=== PATIENT | male | born 1975 | race Caucasian/White ===

== ENCOUNTER 2018-12-03 10:14 | Emergency (ER) | payer MEDICARE, OTHER ==
[~2018-12-03] VITALS: Ht 177.8 cm; Wt 88.5 kg
[2018-12-03 10:16] VITALS: BP 115/71
--- NOTE | 2018-12-03 10:54 | NUR ---
PATIENT AMB WITH STEADY GAIT TO BED 12
--- NOTE | 2018-12-03 10:57 | NUR ---
Marvin zayas in EDM - 12/03/18 at 1235 by KEEGAN BROUGHT IN BY [facility] C/O INTERMITTENT LLQ WITH NAUSEA AND LOOSE STOOLS DENIES BRIGHT RED BLOOD IN STOOL
--- NOTE | 2018-12-03 10:59 | NUR ---
Note chana in EDM - 12/03/18 at 1235 by KEEGAN BROUGHT IN BY [facility] C/O INTERMITTENT LLQ WITH NAUSEA AND LOOSE STOOLS DENIES BRIGHT RED BLOOD IN STOOL HX: UC, DIVERTICULOSIS. STATES HE TOOK HIS PRESCRIBED 2MG DILAUDID THIS MORNING WITH NO RELIEF.
--- NOTE | 2018-12-03 13:15 | NUR ---
PATIENT STATES PAIN AT THIS TIME. DR ELLIS MADE AWARE
[2018-12-03] MEDS ORDERED: NACL 0.9% 1,000 ML IV SCH (14:13)
[2018-12-03] MEDS ORDERED: NACL 0.9% 1,000 ML IV ONE (14:13)
[2018-12-03] MEDS ORDERED: PROMETHAZINE 25 MG/ML VIAL IM ONE (14:15)
[2018-12-03] MEDS ORDERED: ALUMINUM HYD/MAG/SIMETHICONE 30 ML, DICYCLOMINE HCL LIQUID 20 MG, LIDOCAINE VISCOUS 2% ... PO ONE ×3 (14:15)
[2018-12-03] MEDS ORDERED: DIPHENOXYLATE /ATROPINE 2.5 MG TAB PO ONE (14:15)
[2018-12-03] MEDS ORDERED: KETOROLAC 30 MG/ML VIAL IM ONE (14:15)
[2018-12-03 15:49] LABS: BASOPHILS # (AUTO) 0.1 K/uL (0.00-0.22); BASOPHILS % (AUTO) 0.9 % (0.0-2.0); EOSINOPHILS # (AUTO) 0.2 K/uL (0-0.4); EOSINOPHILS % (AUTO) 2.5 % (0.0-4.0); HEMATOCRIT 44.1 % (36-52); HEMOGLOBIN 14.6 g/dL (12.0-18.0); LYMPHOCYTES # (AUTO) 2.2 K/uL (2.0-11.5); LYMPHOCYTES % (AUTO) 34.3 % (20.5-51.1); MEAN CORPUSCULAR HEMOGLOBIN 30 pg (27-31); MEAN CORPUSCULAR HGB CONC 33 g/dL (33-37); MEAN CORPUSCULAR VOLUME 90.2 fL (80-94); MONOCYTES # (AUTO) 0.6 K/uL (0.8-1.0); MONOCYTES % (AUTO) 9.3 % (1.7-9.3); NEUTROPHILS # (AUTO) 3.5 K/uL (1.8-7.7); PLATELET COUNT (AUTO) 239 K/uL (140-450); RED BLOOD CELL COUNT(AUTO) 4.89 MIL/uL (4.20-6.10); RED CELL DISTRIBUTION WIDTH 13.6 % (11.6-13.7); WHITE BLOOD COUNT (AUTO) 6.5 K/uL (4.8-10.8)
[2018-12-03 16:26] LABS: ANION GAP 13.3 (8-16); CARBON DIOXIDE 27.9 mmol/L (21-32); CHLORIDE 105 mmol/L (98-107); POTASSIUM 4.2 mmol/L (3.5-5.1); SODIUM SERUM 142 mmol/L (136-145)
--- NOTE | 2018-12-03 16:26 | NUR ---
patient states he does not want the ct scan, he wants to go home he "feels better".
[2018-12-03 16:27] LABS: CREATININE 1.1 mg/dL (0.7-1.3); GFR ARICAN-AMERICAN 94 mL/min (>90); GLUCOSE 82 mg/dL (74-106); UREA NITROGEN, BLOOD 10 mg/dL (7-18)
[2018-12-03 16:29] LABS: ASPARTATE AMINOTRANSFERASE 11 U/L (15-37); TOTAL BILIRUBIN 0.4 mg/dL (0.0-1.0)
[2018-12-03 16:30] LABS: ALBUMIN 4.2 g/dL (3.4-5.0); AMYLASE 76 U/L (25-115); LIPASE 212 U/L (73-393)
[2018-12-03 16:33] VITALS: BP 120/75
--- NOTE | 2018-12-03 16:34 | NUR ---
Patient discharged with v/s stable. Written and verbal after care instructions given and explained. Patient alert, oriented and verbalized understanding of instructions. Ambulatory with steady gait. All questions addressed prior to discharge. ID band removed. Patient advised to follow up with PMD. Rx of Bentyl given. Patient educated on indication of medication including possible reaction and side effects. Opportunity to ask questions provided and answered.
--- NOTE | 2018-12-05 08:12 | NUR ---
Late Entry. COnfirmed with RN that 0.9 NS IV at 100 ml/hr ran until 1630 then was dc'd.
== END 2018-12-03 16:34 | disposition home or self-care (01) ==
LOC: MED 10:14
DX: R10.30 Lower abdominal pain, unspecified (principal); K58.9 Irritable bowel syndrome, unspecified; K57.90 Diverticulosis of intestine, part unspecified, without perforation or abscess without bleeding; I10 Essential (primary) hypertension; Z90.49 Acquired absence of other specified parts of digestive tract; Z98.890 Other specified postprocedural states; Z87.442 Personal history of urinary calculi
CPT/HCPCS: 36415; 80053; 81002; 82150; 82550; 83690; 84484; 85025; 93005; 96360; 96361; 96372; 99284; G0482; J1885; J2550; J7030